=== PATIENT | male | born 1960 | race Caucasian/White ===

== ENCOUNTER 2019-02-27 11:58 | Emergency (ER) | payer MEDICAID, OTHER ==
[~2019-02-27] VITALS: Ht 170.2 cm; Wt 79.4 kg
[2019-02-27 12:12] VITALS: BP 145/93
[2019-02-27] MEDS ORDERED: KETOROLAC TROMETH 60MG/2ML VIAL IM ONE (13:00)
[2019-02-27] MEDS ORDERED: cefTRIAXone SOD 1,000 MG VL IM ONE (13:00)
== END 2019-02-27 13:52 | disposition home or self-care (01) ==
LOC: ER 11:58 → EDBD 11:58 → ER 13:52
DX: S60.321A Blister (nonthermal) of right thumb, initial encounter (principal); S60.822A Blister (nonthermal) of left wrist, initial encounter; F17.210 Nicotine dependence, cigarettes, uncomplicated; Z59.0 Homelessness; Z88.8 Allergy status to other drugs, medicaments and biological substances; X58.XXXA Exposure to other specified factors, initial encounter; Y93.89 Activity, other specified; Y92.89 Other specified places as the place of occurrence of the external cause; Y99.8 Other external cause status
CPT/HCPCS: 73130; 96372; 99283; J0696

== ENCOUNTER 2020-04-24 18:16 | Emergency (ER) | payer MEDICAID ==
[~2020-04-24] VITALS: Ht 170.2 cm; Wt 77.1 kg
[2020-04-24 18:32] VITALS: BP 119/91
== END 2020-04-24 23:36 | disposition home or self-care (01) ==
LOC: ER 18:17
DX: S51.802A Unspecified open wound of left forearm, initial encounter (principal); L03.114 Cellulitis of left upper limb; F17.210 Nicotine dependence, cigarettes, uncomplicated; Z59.0 Homelessness; X58.XXXA Exposure to other specified factors, initial encounter; Y93.89 Activity, other specified; Y92.89 Other specified places as the place of occurrence of the external cause; Y99.8 Other external cause status
CPT/HCPCS: 73200

== ENCOUNTER 2020-11-01 12:58 | Emergency (ER) | payer MEDICAID ==
[~2020-11-01] VITALS: Ht 172.7 cm; Wt 68.0 kg
[2020-11-01] MEDS ORDERED: SODIUM CHLORIDE 0.9% 1,000 ML IV ONE ×2 (13:15)
[2020-11-01 14:27] LABS: Basophils # (auto) 0 10 ^3/uL (0-0.2); Basophils % (auto) 0.3 % (0.0-2.0); Eosinophils # (auto) 0.1 10 ^3/uL (0-0.8); Eosinophils % (auto) 0.5 % (0.0-7.0); Hematocrit 43.5 % (41.0-53.0); Hemoglobin 14.6 g/dL (13.5-17.5); Lymphocytes % (auto) 8.8 % (10.0-50.0); Mean Corpuscular Hemoglobin 31.9 pg (28.0-32.0); Mean Corpuscular Hgb Conc. 33.5 g/dL (32.0-36.0); Mean Corpuscular Volume 95.1 fL (80.0-100.0); Monocytes # (auto) 0.4 10 ^3/uL (0-1.3); Monocytes % (auto) 3.7 % (0.0-12.0); Neutrophils # (auto) 9.8 10 ^3/uL (1.6-8.6); Neutrophils % (auto) 86.7 % (37.0-80.0); Red Blood Cells 4.57 10^6/uL (4.5-5.90); Red Cell Distribution Width 13.8 % (11.8-14.3); White Blood Cell 11.4 10^3/uL (4.4-10.8)
[2020-11-01 14:45] LABS: Albumin 3.9 g/dL (3.4-5.0); Anion Gap 5 (5-15); Blood Urea Nitrogen 15 mg/dL (7-18); Calcium 8.4 mg/dL (8.5-10.1); Carbon Dioxide 28 mmol/L (21-32); Chloride 106 mmol/L (98-107); Glucose 116 mg/dL (74-106); Potassium 3.6 mmol/L (3.5-5.1); Sodium 139 mmol/L (136-145)
[2020-11-01 14:48] LABS: Alanine Aminotransferase 83 U/L (16-61); Aspartate Aminotransferase 82 U/L (15-37); BUN/Creatinine Ratio 18.5; GFR African American 125 mL/min; GFR Non-African American 103 mL/min
[2020-11-01 14:53] LABS: Alkaline Phosphatase 125 U/L (45-117); Bilirubin, Total 0.2 mg/dL (0.2-1.0); Total Protein 6.9 g/dL (6.4-8.2)
[2020-11-01 17:50] VITALS: BP 128/77
== END 2020-11-01 18:00 | disposition home or self-care (01) ==
LOC: ER 12:58 → EDBD 12:58 → ER 18:00
DX: F15.10 Other stimulant abuse, uncomplicated (principal); F17.210 Nicotine dependence, cigarettes, uncomplicated; F12.10 Cannabis abuse, uncomplicated; Z59.0 Homelessness; Z88.8 Allergy status to other drugs, medicaments and biological substances
CPT/HCPCS: 36415; 80053; 83880; 84484; 85025; 93005; 96360; 96361; 99284; J7030

== ENCOUNTER 2022-12-11 00:43 | Emergency (ER) | payer MEDICAID ==
[~2022-12-11] VITALS: Ht 172.7 cm; Wt 72.7 kg
[2022-12-11] MEDS ORDERED: ACCU-CHEK COMFORT CURVE STRIP VI ONE (01:15)
[2022-12-11 01:52] LABS: Basophils # (auto) 0.1 10 ^3/uL (0-0.2); Basophils % (auto) 0.7 % (0.0-2.0); Eosinophils # (auto) 0.1 10 ^3/uL (0-0.8); Eosinophils % (auto) 0.9 % (0.0-7.0); Hematocrit 40.6 % (41.0-53.0); Hemoglobin 13.6 g/dL (13.5-17.5); Lymphocytes # (auto) 1.5 10 ^3/uL (0.4-5.4); Mean Corpuscular Hemoglobin 31.3 pg (28.0-32.0); Mean Corpuscular Hgb Conc. 33.4 g/dL (32.0-36.0); Mean Corpuscular Volume 93.8 fL (80.0-100.0); Monocytes # (auto) 0.6 10 ^3/uL (0-1.3); Monocytes % (auto) 5.7 % (0.0-12.0); Neutrophils # (auto) 7.8 10 ^3/uL (1.6-8.6); Neutrophils % (auto) 77.7 % (37.0-80.0); Red Blood Cells 4.33 10^6/uL (4.5-5.90)
[2022-12-11 02:05] LABS: Alanine Aminotransferase 28 U/L (7-40); Alkaline Phosphatase 94 U/L (46-116); Anion Gap 3.3 (5-15); Aspartate Aminotransferase 22 U/L (13-40); BUN/Creatinine Ratio 13.3 (10.0-20.0); Bilirubin, Total 0.4 mg/dL (0.2-1.0); Blood Urea Nitrogen 10 mg/dL (9-23); Carbon Dioxide 28.7 mmol/L (20-30); Chloride 105 mmol/L (98-107); Glucose 117 mg/dL (74-106); Potassium 3.4 mmol/L (3.5-5.1); Sodium 137 mmol/L (136-145); Total Protein 6.1 g/dL (5.7-8.2)
[2022-12-11 02:28] LABS: Salicylate < 3.0 mg/dL (2.8-20.0)
[2022-12-11 02:42] LABS: Acetaminophen < 2.0 UG/ML (10.0-20.0)
[2022-12-11] MEDS ORDERED: NALO4SPR2 (03:16)
[2022-12-11 03:30] VITALS: BP 142/86; PULSE 92; RESP 18; TEMP 98.5; O2SAT 99
== END 2022-12-11 03:17 | disposition home or self-care (01) ==
LOC: ER 00:43 → EDBD 00:43 → ER 03:17
DX: T43.621A Poisoning by amphetamines, accidental (unintentional), initial encounter (principal); F17.210 Nicotine dependence, cigarettes, uncomplicated; F10.90 Alcohol use, unspecified, uncomplicated; F12.90 Cannabis use, unspecified, uncomplicated; F15.90 Other stimulant use, unspecified, uncomplicated; Y92.89 Other specified places as the place of occurrence of the external cause
CPT/HCPCS: 36415; 80053; 80329; 85025

== ENCOUNTER 2023-04-28 04:45 | Emergency (ER) | payer MEDICAID ==
[~2023-04-28] VITALS: Ht 182.9 cm; Wt 100.0 kg
[~2023-04-28 04:45] MED LIST: NALO4SPR2
[2023-04-28 06:32] LABS: Basophils # (auto) 0 10 ^3/uL (0-0.2); Basophils % (auto) 0.2 % (0.0-2.0); Eosinophils # (auto) 0 10 ^3/uL (0-0.8); Eosinophils % (auto) 0.4 % (0.0-7.0); Hematocrit 48.1 % (41.0-53.0); Hemoglobin 15.9 g/dL (13.5-17.5); Lymphocytes # (auto) 1.2 10 ^3/uL (0.4-5.4); Mean Corpuscular Hgb Conc. 33.1 g/dL (32.0-36.0); Mean Corpuscular Volume 93.7 fL (80.0-100.0); Monocytes # (auto) 0.6 10 ^3/uL (0-1.3); Monocytes % (auto) 4.3 % (0.0-12.0); Neutrophils # (auto) 11.1 10 ^3/uL (1.6-8.6); Neutrophils % (auto) 86.1 % (37.0-80.0); Nucleated Red Blood Cells % 0.1 %; Red Blood Cells 5.13 10^6/uL (4.5-5.90); Red Cell Distribution Width 14.5 % (11.8-14.3); White Blood Cell 12.9 10^3/uL (4.4-10.8)
[2023-04-28 06:45] LABS: Alanine Aminotransferase 54 U/L (7-40); Albumin 4.8 g/dL (3.2-4.8); Alkaline Phosphatase 141 U/L (46-116); Anion Gap 9 (5-15); Aspartate Aminotransferase 32 U/L (13-40); BUN/Creatinine Ratio 17.6 (10.0-20.0); Bilirubin, Total 0.4 mg/dL (0.2-1.0); Blood Urea Nitrogen 15 mg/dL (9-23); Carbon Dioxide 26 mmol/L (20-30); Chloride 98 mmol/L (98-107); Glucose 103 mg/dL (74-106); Potassium 4.3 mmol/L (3.5-5.1); Sodium 133 mmol/L (136-145); Total Protein 6.8 g/dL (5.7-8.2)
[2023-04-28 07:04] VITALS: BP 159/66; PULSE 89; RESP 18; O2SAT 98
== END 2023-04-28 05:31 | disposition left against medical advice (07) ==
LOC: ER 04:45 → EDBD 04:45 → ER 05:31
DX: K59.00 Constipation, unspecified (principal); Z53.21 Procedure and treatment not carried out due to patient leaving prior to being seen by health care provider
CPT/HCPCS: 36415; 80053; 84484; 85025

== ENCOUNTER 2023-07-22 21:42 | Emergency (ER) | payer MEDICAID ==
[~2023-07-22] VITALS: Ht 170.2 cm; Wt 79.5 kg
[2023-07-22 21:45] VITALS: BP 182/96; PULSE 90; RESP 16; O2SAT 96
[2023-07-23 00:52] LABS: Urine Bacteria None Seen /hpf (None Seen)
[2023-07-23 01:05] LABS: Urine Blood Negative /uL (Negative); Urine Clarity Clear (Clear); Urine Color Light-Yellow (Yellow); Urine Protein, UAD Negative (Negative); Urine Specific Gravity 1.011 (1.001-1.035); Urine Urobilinogen Normal (Negative); Urine WBC 2 /hpf (0 - 3)
== END 2023-07-23 04:52 | disposition home or self-care (01) ==
LOC: EDBD 21:42 → ER 21:42
DX: N43.3 Hydrocele, unspecified (principal); N43.40 Spermatocele of epididymis, unspecified; F17.210 Nicotine dependence, cigarettes, uncomplicated; F10.90 Alcohol use, unspecified, uncomplicated; F15.90 Other stimulant use, unspecified, uncomplicated; Z59.00 Homelessness unspecified; Z88.8 Allergy status to other drugs, medicaments and biological substances; Z79.899 Other long term (current) drug therapy; Y90.0 Blood alcohol level of less than 20 mg/100 ml
CPT/HCPCS: 76870; 81001

== ENCOUNTER 2023-10-29 12:32 | Emergency (ER) | payer MEDICAID | END 2023-10-29 13:31 | disposition left against medical advice (07) | LOC: ER 12:37 | DX: H92.02 Otalgia, left ear (principal); Z53.21 Procedure and treatment not carried out due to patient leaving prior to being seen by health care provider ==